=== PATIENT | female | born 1995 | race Two or more races ===

== ENCOUNTER 2024-04-18 07:54 | Outpatient (CLI) | payer OTHER | END 2024-04-18 07:59 | disposition home or self-care (01) | LOC: SONOGRAMA 07:54 | PROVIDERS: ATTEND Obstetrics & Gynecology Gynecology | DX: N64.4 Mastodynia (principal); N63.10 Unspecified lump in the right breast, unspecified quadrant ==

== ENCOUNTER → 2024-04-21 07:05 | Outpatient (CLI) | payer OTHER ==
[2024-04-21 08:07] LABS: HEMATOCRIT 34.7 % (36.0-45.00); HEMOGLOBIN 12.1 g/dL (12.0-15.00); MEAN CELL VOLUME 94.6 fL (80.00-100.00); MEAN CORPUSCULAR HGB CONC 34.8 g/dl (32.0-36.0); PLATELET COUNT 171 K/uL (150-450); RED BLOOD COUNT 3.67 M/uL (4.00-6.00)
[2024-04-21 08:37] LABS: ALBUMIN 3.4 gm/dL (3.4-5.0); BILIRUBIN TOTAL 0.33 mg/dL (0.3-1.2); CALCIUM 8.6 mg/dL (8.5-10.1); CREATININE SERUM 0.32 mg/dL (0.55-1.02); GFR 249.61; GLOBULINA 3.1 G/DL (2.4-3.5); POTASSIUM 4.04 mEq/L (3.5-5.1); TOTAL PROTEIN 6.5 gm/dL (6.4-8.2)
[2024-04-21 09:24] LABS: PH,URINE 6.5 (5.0-8.0); URINE APPEARANCE Clear; URINE BILIRRUBIN Negative (NEGATIVE); URINE BLOOD Negative; URINE COLOR Yellow; URINE GLUCOSE Negative (NEGATIVE); URINE LEUKOCYTE Negative; URINE NITRATE Negative; URINE PROTEIN Negative (NEGATIVE); URINE UROBILINOGEN 0.2 E.U./dl
[2024-04-21 09:26] LABS: URINE BACTERIA 100.7 uL (0.0-1933); URINE EPITHELIAL CELLS 25.1 uL (0.0-38.8); URINE RBC 3.2 uL (0.0-20.8); URINE WBC 4.4 uL (0.0-23.2)
== END | disposition home or self-care (01) ==
LOC: LAB 07:05
PROVIDERS: ATTEND Obstetrics & Gynecology Gynecology
DX: O09.92 Supervision of high risk pregnancy, unspecified, second trimester (principal); G40.909 Epilepsy, unspecified, not intractable, without status epilepticus

== ENCOUNTER 2024-06-06 11:19 | Outpatient (CLI) | payer OTHER | END 2024-06-06 11:20 | disposition home or self-care (01) | LOC: NUCLEAR 11:19 | PROVIDERS: ATTEND Internal Medicine | DX: R00.2 Palpitations (principal) ==

== ENCOUNTER 2024-06-15 18:34 | Emergency (ER) | payer OTHER ==
[~2024-06-15] VITALS: Ht 152.4 cm; Wt 57.2 kg
[2024-06-15] MEDS ORDERED: KEPPRA1000 MG PO (18:36)
[2024-06-15] MEDS ORDERED: PRENATA CHEWAB1 EACH (18:36)
[2024-06-15] MEDS ORDERED: FOLIC ACID0.8 M1 (18:36)
== END 2024-06-15 20:49 | disposition home or self-care (01) ==
LOC: ER 18:34
DX: R53.81 Other malaise (principal); R00.2 Palpitations

== ENCOUNTER 2024-06-19 11:24 | Outpatient (CLI) | payer OTHER ==
[~2024-06-19 11:24] MED LIST: FOLIC ACID0.8 M1; KEPPRA1000 MG PO; PRENATA CHEWAB1 EACH
== END 2024-06-19 12:02 | disposition home or self-care (01) ==
LOC: NST 11:24
PROVIDERS: ATTEND Obstetrics & Gynecology
DX: Z34.83 Encounter for supervision of other normal pregnancy, third trimester (principal)

== ENCOUNTER 2024-07-16 12:43 | Inpatient (IN) | payer OTHER ==
[~2024-07-16] VITALS: Ht 152.4 cm; Wt 2.7 kg
[2024-07-16 12:39] VITALS: BP 121/77
[2024-07-16] MEDS ORDERED: RINGERS SOLUTION,LACTATED 1,000 ML IV SCH (13:00)
[2024-07-16] MEDS ORDERED: FOLIC ACID1 MG PO (13:07)
[2024-07-16] MEDS ORDERED: TOPROL XL25 M1 PO (13:07)
[2024-07-16] MEDS ORDERED: PANADOL EXTRA500 MG PO (13:08)
[2024-07-16 13:14] LABS: HEMATOCRIT 35.4 % (36.0-45.00); MEAN CELL VOLUME 93.9 fL (80.00-100.00); MEAN CORPUSCULAR HEMOGLOBIN 31.9 pg (27.00-32.0); PLATELET COUNT 199 K/uL (150-450); RED BLOOD COUNT 3.77 M/uL (4.00-6.00); RED CELL DISTRIBUTION WIDTH 12.5 % (11.5-14.5)
[2024-07-16 13:44] LABS: INR < 0.93; PARTIAL THROMBOPLASTIN TIME 24.8 SECONDS (22.0-34.0); PROTHROMBIN TIME 9.4 SECONDS (9.0-11.5)
[2024-07-16] MEDS ORDERED: CEFAZOLIN SODIUM 1,000 MG VIAL IV STA (14:54)
[2024-07-16] MEDS ORDERED: OXYTOCIN 1,000 ML IV SCH (16:00)
[2024-07-16] MEDS ORDERED: ONDANSETRON HCL 2 MG/ML VIAL IV PRN (16:00)
[2024-07-16] MEDS ORDERED: MORPHINE SULFATE 4 MG/ML CARTRIDGE IV PRN (16:00)
[2024-07-16] MEDS ORDERED: MEPERIDINE HCL 25 MG/ML AMPUL IV ONE (16:25)
[2024-07-16] MEDS ORDERED: CARBOPROST TROMETHAMINE 250 MCG/ML AMPUL IM ONE (16:30)
[2024-07-16] MEDS ORDERED: KETOROLAC TROMETHAMINE 30 MG VIAL IV ONE (16:55)
[2024-07-16] MEDS ORDERED: MEPERIDINE HCL/PF 50 MG/ML VIAL IM SCH (17:08)
[2024-07-16] MEDS ORDERED: KETOROLAC TROMETHAMINE 30 MG VIAL IV SCH (17:15)
[2024-07-16 19:10] VITALS: BP 106/66
[2024-07-17] VITALS: BP 118/73
[2024-07-17] MEDS ORDERED: LevETIRAcetam 500 MG TAB. PO SCH ×2 (05:36→21:00)
[2024-07-17 07:10] LABS: HEMATOCRIT 30.5 % (36.0-45.00); HEMOGLOBIN 10.5 g/dL (12.0-15.00); MEAN CELL VOLUME 92.7 fL (80.00-100.00); MEAN CORPUSCULAR HEMOGLOBIN 31.9 pg (27.00-32.0); MEAN CORPUSCULAR HGB CONC 34.4 g/dl (32.0-36.0); PLATELET COUNT 186 K/uL (150-450); RED BLOOD COUNT 3.29 M/uL (4.00-6.00); RED CELL DISTRIBUTION WIDTH 12.8 % (11.5-14.5)
[2024-07-17 07:48] VITALS: BP 96/64
[2024-07-17] MEDS ORDERED: IBUprofen 400 MG TABLET PO SCH (09:00)
[2024-07-17 12:36] VITALS: BP 110/76
[2024-07-17] MEDS ORDERED: OXYTOCIN 10 UNITS/ML VIAL IV ONE (13:30)
[2024-07-17] MEDS ORDERED: ERYTHROMYCIN BASE OPHT 1GM EACH TUBE OP ONE (13:30)
[2024-07-17] MEDS ORDERED: OxyCODONE HCL 5 MG TABLET (ROXICODONE) PO PRN (15:45)
[2024-07-17] MEDS ORDERED: IBUprofen 600 MG TABLET PO PRN (15:45)
[2024-07-17] MEDS ORDERED: GABAPENTIN 300 MG CAPSULE PO PRN (15:45)
[2024-07-17 18:14] VITALS: BP 103/69
[2024-07-17] MEDS ORDERED: KETOROLAC TROMETHAMINE 10 MG TABLET PO SCH (20:00)
[2024-07-17] MEDS ORDERED: ACETAMINOPHEN 500 MG GEL..CAP PO PRN (21:00)
[2024-07-18 00:43] VITALS: BP 97/55
[2024-07-18 08:42] VITALS: BP 95/89
[2024-07-18] MEDS ORDERED: IBUprofen 400 MG TABLET PO SCH (09:00)
[2024-07-18] MEDS ORDERED: MAGNESIUM HYDROXIDE 30 ML BLIST.PACK PO PRN (12:15)
[2024-07-18] MEDS ORDERED: BISACODYL 10 MG/SUPP.RECT SUPP.RECT RECTAL ONE (12:15)
[2024-07-18 16:06] VITALS: BP 109/77
[2024-07-19 01:57] VITALS: BP 100/60
[2024-07-19 08:00] VITALS: BP 95/56
== END 2024-07-19 18:32 | disposition home or self-care (01) | DRG 786 ==
LOC: LDR 12:43 → O/R 16:21 → OB/GYN 18:11
PROVIDERS: ADMIT Obstetrics & Gynecology; ATTEND Obstetrics & Gynecology
PROC: 4A1HXCZ Monitoring of Products of Conception, Cardiac Rate, External Approach (ICD-10-PCS; 2024-07-16)
PROC: 10D00Z1 Extraction of Products of Conception, Low, Open Approach (ICD-10-PCS; principal; 2024-07-16 18:00)
DX: O36.8130 Decreased fetal movements, third trimester, not applicable or unspecified (principal); O41.1230 Chorioamnionitis, third trimester, not applicable or unspecified; Z3A.37 37 weeks gestation of pregnancy; Z37.0 Single live birth; Z20.822 Contact with and (suspected) exposure to COVID-19

== ENCOUNTER 2024-08-29 17:02 | Emergency (ER) | payer OTHER ==
[~2024-08-29] VITALS: Ht 152.4 cm; Wt 52.2 kg
[~2024-08-29 17:02] MED LIST changes: +FOLIC ACID1 MG PO; +PANADOL EXTRA500 MG PO; +TOPROL XL25 M1 PO
[2024-08-29 17:14] VITALS: BP 125/80; O2SAT 100
[2024-08-29] MEDS ORDERED: DEXAMETHASONE SODIUM PHOSPHATE 4 MG/ML VIAL IM ONE (17:45)
[2024-08-29] MEDS ORDERED: GUAIFENESIN/DEXTROMETHORPHAN 10ML BLIST.PACK PO ONE (17:45)
[2024-08-29 17:54] LABS: HEMATOCRIT 39.3 % (36.0-45.00); HEMOGLOBIN 13.1 g/dL (12.0-15.00); MEAN CELL VOLUME 90.6 fL (80.00-100.00); MEAN CORPUSCULAR HEMOGLOBIN 30.3 pg (27.00-32.0); MEAN CORPUSCULAR HGB CONC 33.4 g/dl (32.0-36.0); PLATELET COUNT 255 K/uL (150-450); RED BLOOD COUNT 4.33 M/uL (4.00-6.00); RED CELL DISTRIBUTION WIDTH 12.9 % (11.5-14.5)
[2024-08-29] MEDS ORDERED: OSELTAMIVIR PHOSPHATE 75 MG CAPSULE PO ONE (18:15)
[2024-08-29 18:51] LABS: ALBUMIN 3.9 gm/dL (3.4-5.0); ALKALINE PHOSPHATASE 80 U/L (50-136); ALT/SGPT 21 U/L (12-78); ANION GAP 8 (10.0-20.0); AST/SGOT 10 U/L (15-37); BILIRUBIN TOTAL 0.15 mg/dL (0.3-1.2); BLOOD UREA NITROGEN 12 mg/dL (7-18); BUN CREA RATIO 17 (7.0-25.0); CALCIUM 9.4 mg/dL (8.5-10.1); CARBON DIOXIDE 31 mEq/L (21-32); CHLORIDE 109 mmol/L (98-107); CREATININE SERUM 0.72 mg/dL (0.55-1.02); GFR 97.17; GLOBULINA 3.8 G/DL (2.4-3.5); GLUCOSE FASTING 84 mg/dL (65-100); OSMOLALITY SERUM 286 MOSM/KG (275-295); POTASSIUM 4.21 mEq/L (3.5-5.1); SODIUM 144 mmol/L (136-145); TOTAL PROTEIN 7.7 gm/dL (6.4-8.2)
[2024-08-29 18:54] LABS: HCG QUANTITATIVE < 1 mUI/mL (1-3)
[2024-08-29] MEDS ORDERED: OSEL75CA PO (18:58)
[2024-08-29] MEDS ORDERED: TUSNEL LIQUID178 ML PO (18:58)
== END 2024-08-29 19:16 | disposition home or self-care (01) ==
LOC: ER 17:02
PROVIDERS: General Practice
DX: J10.1 Influenza due to other identified influenza virus with other respiratory manifestations (principal); N93.9 Abnormal uterine and vaginal bleeding, unspecified; Z20.822 Contact with and (suspected) exposure to COVID-19

== ENCOUNTER → 2024-10-02 14:31 | Outpatient (CLI) | payer OTHER ==
[~2024-10-02 14:31] MED LIST changes: +OSEL75CA PO; +TUSNEL LIQUID178 ML PO
[2024-10-02 14:58] LABS: HEMOGLOBIN 13.5 g/dL (12.0-15.00); MEAN CELL VOLUME 88.8 fL (80.00-100.00); MEAN CORPUSCULAR HEMOGLOBIN 29.2 pg (27.00-32.0); MEAN CORPUSCULAR HGB CONC 32.9 g/dl (32.0-36.0); PLATELET COUNT 247 K/uL (150-450); RED BLOOD COUNT 4.61 M/uL (4.00-6.00); RED CELL DISTRIBUTION WIDTH 13.5 % (11.5-14.5)
== END | disposition home or self-care (01) ==
LOC: LAB 14:31
PROVIDERS: ATTEND Surgery
DX: D64.9 Anemia, unspecified (principal)

== ENCOUNTER 2024-12-20 06:40 | Outpatient (CLI) | payer OTHER ==
[2024-12-20 07:17] LABS: URINE APPEARANCE Clear; URINE BILIRRUBIN Negative (NEGATIVE); URINE BLOOD Negative; URINE COLOR Yellow; URINE GLUCOSE Negative (NEGATIVE); URINE KETONE Negative (NEGATIVE); URINE LEUKOCYTE Negative; URINE NITRATE Negative; URINE PROTEIN Negative (NEGATIVE); URINE UROBILINOGEN 0.2 E.U./dl
[2024-12-20 07:21] LABS: URINE BACTERIA 254.5 uL (0.0-1933); URINE EPITHELIAL CELLS 39.7 uL (0.0-38.8); URINE RBC 3.3 uL (0.0-20.8); URINE WBC 7.7 uL (0.0-23.2)
[2024-12-20 08:01] LABS: HEMATOCRIT 41.3 % (36.0-45.00); HEMOGLOBIN 14.3 g/dL (12.0-15.00); MEAN CELL VOLUME 89.2 fL (80.00-100.00); MEAN CORPUSCULAR HEMOGLOBIN 30.8 pg (27.00-32.0); MEAN CORPUSCULAR HGB CONC 34.5 g/dl (32.0-36.0); PLATELET COUNT 292 K/uL (150-450); RED BLOOD COUNT 4.63 M/uL (4.00-6.00); RED CELL DISTRIBUTION WIDTH 13.6 % (11.5-14.5)
[2024-12-20 08:39] LABS: ALBUMIN 4.2 gm/dL (3.4-5.0); BILIRUBIN TOTAL 0.47 mg/dL (0.3-1.2); CALCIUM 9.2 mg/dL (8.5-10.1); CHOL HDL RATIO 1.9 (0-5.0); CREATININE SERUM 0.49 mg/dL (0.55-1.02); GFR 151.49; GLOBULINA 3.5 G/DL (2.4-3.5); POTASSIUM 4.53 mEq/L (3.5-5.1); TOTAL PROTEIN 7.7 gm/dL (6.4-8.2); TSH 1.16 uIU/mL (0.358-3.74)
[2024-12-20 09:29] LABS: VITAMIN D3 25 HYDROXY 36.12 ng/ml (30-120)
== END 2024-12-20 06:44 | disposition home or self-care (01) ==
LOC: LAB 06:40
DX: N18.2 Chronic kidney disease, stage 2 (mild) (principal); E78.00 Pure hypercholesterolemia, unspecified; E78.2 Mixed hyperlipidemia; R30.0 Dysuria; R19.5 Other fecal abnormalities; E55.9 Vitamin D deficiency, unspecified; D51.9 Vitamin B12 deficiency anemia, unspecified; E11.9 Type 2 diabetes mellitus without complications; E03.8 Other specified hypothyroidism; D64.89 Other specified anemias

== ENCOUNTER → 2024-12-21 | Outpatient (CLI) | payer OTHER ==
[2024-12-21 11:17] LABS: ob NEGATIVE (NEGATIVE)
== END | disposition home or self-care (01) ==
LOC: LAB 07:03
DX: N18.2 Chronic kidney disease, stage 2 (mild) (principal); E78.00 Pure hypercholesterolemia, unspecified; E78.2 Mixed hyperlipidemia; R30.0 Dysuria; R19.5 Other fecal abnormalities; Z12.11 Encounter for screening for malignant neoplasm of colon; E55.9 Vitamin D deficiency, unspecified; D51.9 Vitamin B12 deficiency anemia, unspecified; E11.9 Type 2 diabetes mellitus without complications; E03.8 Other specified hypothyroidism; D64.89 Other specified anemias

== ENCOUNTER 2025-05-21 07:07 | Outpatient (CLI) | payer OTHER ==
[2025-05-22 05:09] LABS: HEPATITIS A ANTIBODY IGG Negative (Negative); HEPATITIS B SURFACE ANTIBODY Reactive (.); HEPATITIS C VIRUS ANTIBODY Non Reactive (Non Reactive)
== END 2025-05-21 07:11 | disposition home or self-care (01) ==
LOC: LAB 07:07
DX: A64 Unspecified sexually transmitted disease (principal); B19.9 Unspecified viral hepatitis without hepatic coma

== ENCOUNTER 2025-05-24 20:26 | Emergency (ER) | payer OTHER ==
[~2025-05-24] VITALS: Ht 152.4 cm; Wt 47.2 kg
== END 2025-05-24 22:39 | disposition home or self-care (01) ==
LOC: ER 20:26
DX: G40.89 Other seizures (principal); Z86.69 Personal history of other diseases of the nervous system and sense organs

== ENCOUNTER → 2025-06-15 07:05 | Outpatient (CLI) | payer OTHER ==
[2025-06-15 07:53] LABS: BASO % 0.6 % (0.1-1.2); EOS # 0.24 (0.04-0.54); EOS % 3.3 % (0.7-7.0); LYMPH # 2.50 (1.18-3.74); LYMPH % 34.9 % (19.3-53.1); MEAN PLATELET VOLUME 9.80 fl (9.4-12.4); MONO # 0.65 (0.24-0.82); MONO % 9.1 % (4.7-12.5); NEUT # 3.72 (1.56-6.13); NEUT % 51.8 % (34.0-71.1); RED CELL DISTRIBUTION WIDTH 11.5 % (11.6-14.4)
[2025-06-15 08:54] LABS: BUN CREA RATIO 45.0 (7.0-25.0); CREATININE SERUM 0.33 mg/dL (0.55-1.02); GFR 239.06; GLUCOSE FASTING 87.0 mg/dL (65-100); OSMOLALITY SERUM 278.0 MOSM/KG (275-295); T4 TOTAL 7.19 UG/DL (4.8-13.9); TSH 1.79 uIU/mL (0.358-3.74)
== END | disposition home or self-care (01) ==
LOC: LAB 07:05
PROVIDERS: ATTEND Internal Medicine
DX: E83.9 Disorder of mineral metabolism, unspecified (principal); I11.9 Hypertensive heart disease without heart failure; E78.2 Mixed hyperlipidemia